=== PATIENT | male | born 1965 | race Caucasian/White ===

== ENCOUNTER 2016-11-08 17:25 | Emergency (ER) | payer MEDICAID ==
[2016-11-08 17:29] VITALS: TEMP 98.1
--- NOTE | 2016-11-08 17:36 | CPEKG ---
Heart Rate: 102 RR Interval: 588 P-R Interval: 132 QRSD Interval: 88 QT Interval: 328 QTC Interval: 428 P [place]: 21 QRS [place]: 52 T Wave [place]: 72 EKG Severity - OTHERWISE NORMAL ECG - EKG Impression: SINUS TACHYCARDIA EKG Impression: Similar to previous Electronically Signed By: Marcos Riggs 08-Nov-2016 17:50:10
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
[2016-11-08 17:53] VITALS: BP 153/93; PULSE 97; RESP 19; O2SAT 95
== END 2016-11-08 17:54 | disposition home or self-care (01) ==
DX: K21.0 Gastro-esophageal reflux disease with esophagitis (principal); F41.9 Anxiety disorder, unspecified; I10 Essential (primary) hypertension; Z79.82 Long term (current) use of aspirin

== ENCOUNTER 2017-05-29 14:04 | Emergency (ER) | payer MEDICAID ==
[2017-05-29 14:18] VITALS: BP 184/107; PULSE 103; RESP 18; TEMP 98.2; O2SAT 94
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
== END 2017-05-29 14:45 | disposition home or self-care (01) ==
LOC: CED 14:04
DX: J20.9 Acute bronchitis, unspecified (principal); I10 Essential (primary) hypertension; Z79.82 Long term (current) use of aspirin

== ENCOUNTER 2017-10-07 16:06 | Emergency (ER) | payer MEDICAID ==
--- NOTE | 2017-10-07 16:44 | EDPHY ---
H & P Time Seen by Provider: 10/07/17 16:36 HPI/ROS: CHIEF COMPLAINT: Epistaxis HISTORY OF PRESENT ILLNESS: Patient is a 52-year-old male who presents emergency department with 3 days of bloody nose. Patient states his symptoms started 3 days ago. His nose bleeds are intermittent. He states the bleeding is primarily from the anterior aspect of his right naris. His last nosebleed was this morning. No recent trauma. Patient takes aspirin but no other blood thinners. Patient states is normal for him to have roughly 3-4 nosebleeds per summer. He denies feeling lightheaded or dizzy. REVIEW OF SYSTEMS: My complete review of systems is negative except as mentioned in the HPI. Past Medical/Surgical History: Includes anxiety, depression, hypertension Past surgical history: Includes back surgery Social history: No drugs or alcohol Smoking Status: Never smoked Physical Exam: Vitals noted GENERAL: Well-appearing, in no acute distress, alert. HEENT: Eyes normal to inspection. Patient has dried blood in his right naris. There is 1 small lateral lesion that is not actively bleeding. There is no septal hematoma. No mass. Patient's pharynx is normal. No active bleeding.. RESPIRATORY: Clear to auscultation bilaterally, no rales, rhonchi or wheezing. CVS: Regular rate and rhythm, no rubs, murmurs, or gallops. ABDOMEN: Soft, nontender. SKIN: Normal color, no rash, warm, dry. No pallor. EXTREMITIES: Normal. NEURO/PSYCH: Alert and oriented, normal mood and affect. Allergies/Adverse Reactions: No Known Allergies Allergy (Verified 05/29/17 14:18) Home Medications: Medication Instructions Recorded Sertraline HCl [Zoloft 100mg (*)] 200 mg PO DAILY 07/30/13 amLODIPine BESYLATE [Norvasc 10 mg 10 mg PO DAILY 07/30/13 (*)] traZODone [traZODONE 50MG (*)] 1 - 2 tab PO HS 07/30/13 Aspirin [Aspirin 325 mg (*)] 325 mg PO DAILY #30 tab 08/01/13 Ibuprofen [Advil] 400 mg PO DAILY PRN 04/15/14 Multivitamins [Tab-A-Alicia] 1 each PO DAILY 04/15/14 Atorvastatin Calcium [Lipitor] 10 mg PO HS 08/16/14 Omeprazole [Prilosec 20 mg] 20 mg PO DAILY 08/16/14 Propranolol HCl [Inderal] 10 mg PO BID PRN 08/16/14 busPIRone [Buspar] 10 mg PO DAILY 08/16/14 Albuterol [Proventil Inhaler HFA 1 - 2 puffs IH Q4H PRN #1 [id number] 05/29/17 (*)] Medical Decision Making ED Course/Re-evaluation: In the emergency department I discussed possible etiologies with the patient. I answered all his questions. Patient is having no active bleeding at this time. Silver nitrate cautery was performed on the lateral lesion of the right nares. Patient tolerated the procedure well. Patient was given warnings prior to leaving. If he develops a nosebleed will use Afrin and a nasal clamp. He will follow up with ENT. Differential Diagnosis: My differential includes but is not limited to anterior nosebleed, posterior nose bleed, mass, malignancy, anemia Departure - Departure Disposition: Home, Routine, Self-Care Clinical Impression: Epistaxis Condition: Good Instructions: Nosebleed (ED) Additional Instructions: Return with persistent nosebleed. If you developed a nosebleed use 2 sprays of Afrin and then place a clamp for 20 min. You been given follow-up with ears Nose and Throat specialist. Referrals: Zenaida Tellez, RAMSEY [Primary Care Provider] - As per Instructions Saray Montes MD [Medical Doctor] - 5-7 days, call for appt.
[2017-10-07] MEDS ORDERED: OXYMETAZOLINE 30 ML NASAL SPRAY EACHNARE ONE (17:00)
[2017-10-07] MEDS ORDERED: OXYMETAZOLINE 30 ML NASAL SPRAY ONE (17:00)
[2017-10-07] MEDS ORDERED: SILVER NITRATE APPLICATOR 1 APPL TP ONE ×2 (17:00)
[2017-10-07 17:17] VITALS: BP 178/114
== END 2017-10-07 17:26 | disposition home or self-care (01) ==
PROC: 095KXZZ Destruction of Nasal Mucosa and Soft Tissue, External Approach (ICD-10-PCS; principal; 2017-10-07)
DX: R04.0 Epistaxis (principal); I10 Essential (primary) hypertension; Z79.82 Long term (current) use of aspirin

== ENCOUNTER 2018-01-29 12:42 | Emergency (ER) | payer MEDICAID ==
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
[2018-01-29] MEDS ORDERED: ASPIRIN 325 MG TAB PO ONE (16:37)
[2018-01-29] MEDS ORDERED: ASPIRIN 81 MG CHEWABLE TAB ONE (16:43)
[2018-01-29 16:53] VITALS: BP 136/86
--- NOTE | 2018-01-31 13:11 | CPEKG ---
Test Reason : OPEN Blood Pressure : / mmHG Vent. Rate : 096 BPM Atrial Rate : 096 BPM P-R Int : 145 ms QRS Dur : 081 ms QT Int : 327 ms P-R-T Axes : 002 015 053 degrees QTc Int : 414 ms Sinus rhythm Probable left atrial enlargement Inferior infarct, old Confirmed by Ania Rooney ([id number]) on 01/31/2018 1:10:32 PM Referred By: Confirmed By:Ania Rooney
== END 2018-01-29 17:00 | disposition home or self-care (01) ==
DX: R50.9 Fever, unspecified (principal); I10 Essential (primary) hypertension; E78.5 Hyperlipidemia, unspecified